=== PATIENT | female | born 1940 | race Caucasian/White ===

== ENCOUNTER → 2016-02-28 | Outpatient (CLI) | payer OTHER ==
[~2016-02-28] MED LIST: A + D42.5 GM TP; ALAWAY10 ML OPHTHALMIC; APAP500 PO; ASPIR 8181 MG PO; BACTROBAN15 GM TP; CLONAZEPAM 0.50.5 M1 PO; CLONAZEPAM 1 MG1 M1 PO; DEPAKOTE 250MG250 M1 PO; DEPAKOTE ER500 MG PO; DESIPRAMINE PO; DOXYCYCLINE 10100 MG PO; EMETROL ORAL S118 ML PO; EVISTA PO; MIDODRINE HCL 55 M1 PO; OSTEO BI-FLEX1 EAC1 PO; PEPCID20 MG PO; PHENERGAN 25 MG25 M1 PO; PREVIDENT473 ML DT; RENA-VITE RX T1 EACH PO; RENVELA800 MG PO; SANTYL OINTMENT30 G1 TP; SENSIPAR 30 MG30 M1 PO; SEROQUEL XR50 MG PO; TRAMADOL 50 MG50 MG PO; VANCOMYCIN500 MG/VIA IV; ZOCOR20 MG PO
== END ==
LOC: HYPER 06:58
DX: L89.623 Pressure ulcer of left heel, stage 3 (principal); M62.81 Muscle weakness (generalized); I13.0 Hypertensive heart and chronic kidney disease with heart failure and stage 1 through stage 4 chronic kidney disease, or unspecified chronic kidney disease; N18.9 Chronic kidney disease, unspecified; I50.20 Unspecified systolic (congestive) heart failure; F31.9 Bipolar disorder, unspecified; Q82.8 Other specified congenital malformations of skin; E78.5 Hyperlipidemia, unspecified; K21.9 Gastro-esophageal reflux disease without esophagitis; Z87.891 Personal history of nicotine dependence

== ENCOUNTER → 2016-03-06 | Outpatient (CLI) | payer OTHER | LOC: RAD 05:16 | DX: S86.012A Strain of left Achilles tendon, initial encounter (principal); L97.429 Non-pressure chronic ulcer of left heel and midfoot with unspecified severity ==

== ENCOUNTER → 2016-05-15 | Outpatient (CLI) | payer OTHER | LOC: HYPER 07:04 | DX: L89.623 Pressure ulcer of left heel, stage 3 (principal); E78.5 Hyperlipidemia, unspecified; K21.9 Gastro-esophageal reflux disease without esophagitis; I11.0 Hypertensive heart disease with heart failure; I50.9 Heart failure, unspecified; F31.9 Bipolar disorder, unspecified; F41.9 Anxiety disorder, unspecified; Z99.2 Dependence on renal dialysis; Z87.891 Personal history of nicotine dependence ==

== ENCOUNTER → 2016-06-14 | Outpatient (CLI) | payer OTHER | LOC: HYPER 05-31 10:32 | DX: L89.623 Pressure ulcer of left heel, stage 3 (principal); M62.81 Muscle weakness (generalized); F31.9 Bipolar disorder, unspecified; I13.0 Hypertensive heart and chronic kidney disease with heart failure and stage 1 through stage 4 chronic kidney disease, or unspecified chronic kidney disease; N18.9 Chronic kidney disease, unspecified; I50.20 Unspecified systolic (congestive) heart failure; Z99.2 Dependence on renal dialysis; E78.5 Hyperlipidemia, unspecified; K21.9 Gastro-esophageal reflux disease without esophagitis; Z87.891 Personal history of nicotine dependence ==

== ENCOUNTER → 2016-07-10 | Outpatient (CLI) | payer OTHER | LOC: HYPER 07:41 | DX: L89.623 Pressure ulcer of left heel, stage 3 (principal); M62.81 Muscle weakness (generalized); I13.0 Hypertensive heart and chronic kidney disease with heart failure and stage 1 through stage 4 chronic kidney disease, or unspecified chronic kidney disease; N18.9 Chronic kidney disease, unspecified; I50.9 Heart failure, unspecified; Z99.2 Dependence on renal dialysis; F31.9 Bipolar disorder, unspecified; E78.5 Hyperlipidemia, unspecified; K21.9 Gastro-esophageal reflux disease without esophagitis; Z87.891 Personal history of nicotine dependence ==

== ENCOUNTER → 2017-01-10 | Outpatient (CLI) | payer OTHER | LOC: HYPER 01-01 09:55 | DX: M86.372 Chronic multifocal osteomyelitis, left ankle and foot (principal); M86.371 Chronic multifocal osteomyelitis, right ankle and foot; F31.9 Bipolar disorder, unspecified; E78.5 Hyperlipidemia, unspecified; K21.9 Gastro-esophageal reflux disease without esophagitis; I11.0 Hypertensive heart disease with heart failure; I50.9 Heart failure, unspecified; Z87.891 Personal history of nicotine dependence ==